=== PATIENT | male | born 1965 | race Caucasian/White ===

== ENCOUNTER 2019-12-21 15:22 | Emergency (ER) | payer SELFPAY ==
--- NOTE | 2019-12-21 16:18 | ER Document Report ---
ED Medical Screen (RME) - General Chief Complaint: Dizziness Stated Complaint: RIGHT SHOULDER PAIN,ARM NUMBNESS Time Seen by Provider: 12/21/19 16:09 Mode of Arrival: Wheelchair Information source: Patient Notes: 54-year-old male presented to ED for pain to the right back numbness to the right arm shortness of breath and dizzy at times for the last 2 days. States his left arm is very numb at this time. He states he has not injured it has not fallen has not lifted up anything to cause this numbness. He states he is also lightheaded and dizzy. Patient has pain to the right upper back and the right chest I have greeted and performed a rapid initial assessment of this patient. A comprehensive ED assessment and evaluation of the patient, analysis of test results and completion of medical decision making process will be conducted by an additional ED providers. TRAVEL OUTSIDE OF THE [place] IN LAST 30 DAYS: No - Related Data Allergies/Adverse Reactions: No Known Drug Allergies Allergy (Verified 12/14/11 10:33) Past Medical History - General Information source: Patient - Social History Cigarette use (# per day): Yes - Pack per day Frequency of alcohol use: Heavy - 3-year Drug Abuse: None Lives with: Family Family history: Reviewed & Not Pertinent - Past Medical History Cardiac Medical History: Reports: Hx Hypertension Pulmonary Medical History: Reports: None EENT Medical History: Reports: None Neurological Medical History: Reports: None Endocrine Medical History: Reports: None Renal/ Medical History: Reports: None Malignancy Medical History: Reports None GI Medical History: Reports: None Musculoskeltal Medical History: Reports Hx Musculoskeletal Trauma - Bilateral clavicle fractures Skin Medical History: Reports None Psychiatric Medical History: Reports: None Traumatic Medical History: Reports: Hx Fractures Infectious Medical History: Reports: None Past Surgical History: Reports: Hx Orthopedic Surgery - Right hand, Hx Tonsillectomy - Immunizations Hx Diphtheria, Pertussis, Tetanus Vaccination: Yes - states 3-4 years ago Physical Exam - Vital signs Vitals: Temp Pulse Resp BP Pulse Ox 97.8 F 97 16 148/89 H 100 12/21/19 15:26 12/21/19 15:26 12/21/19 15:26 12/21/19 15:26 12/21/19 15:26 Course - Vital Signs Vital signs: Temp Pulse Resp BP Pulse Ox 97.8 F 97 16 148/89 H 100 12/21/19 15:26 12/21/19 15:26 12/21/19 15:26 12/21/19 15:26 12/21/19 15:26
--- NOTE | 2019-12-21 16:49 | RADIOLOGY REPORT (SQ) ---
EXAM DESCRIPTION: SCAPULA RIGHT IMAGES COMPLETED DATE/TIME: 12/21/2019 4:33 pm REASON FOR STUDY: Pain right upper chest and scapular down right arm COMPARISON: None. NUMBER OF VIEWS: Two views. TECHNIQUE: AP and transscapular images acquired of the right shoulder. LIMITATIONS: None. FINDINGS: MINERALIZATION: Normal. BONES: No acute fracture . No worrisome bone lesions. No significant osteophytes. SOFT TISSUES: No calcifications. VISUALIZED RIBS, SPINE, AND LUNG: No other significant finding. OTHER: No other significant finding. IMPRESSION: NEGATIVE STUDY OF THE RIGHT SHOULDER. NO RADIOGRAPHIC EVIDENCE OF ACUTE INJURY. NO EXPLA NATION FOR PAIN. TECHNICAL DOCUMENTATION: JOB ID: [id number] 2010 [employer]- All Rights Reserved Reading location - IP/workstation name: [email or web address]
--- NOTE | 2019-12-21 16:51 | RADIOLOGY REPORT (SQ) ---
EXAM DESCRIPTION: CHEST 2 VIEWS IMAGES COMPLETED DATE/TIME: 12/21/2019 4:33 pm REASON FOR STUDY: Pain right upper chest and scapular down right arm COMPARISON: None. EXAM PARAMETERS: NUMBER OF VIEWS: two views TECHNIQUE: Digital Frontal and Lateral radiographic views of the chest acquired. RADIATION DOSE: NA LIMITATIONS: none FINDINGS: LUNGS AND PLEURA: No opacities, masses or pneumothorax. No pleural effusion. MEDIASTINUM AND HILAR STRUCTURES: No masses or contour abnormalities. HEART AND VASCULAR STRUCTURES: Heart normal size. No evidence for failure. BONES: No acute findings. HARDWARE: None in the chest. OTHER: No other significant finding. IMPRESSION: NO ACUTE RADIOGRAPHIC FINDING IN THE CHEST. TECHNICAL DOCUMENTATION: JOB ID: [id number] 2010 [employer]- All Rights Reserved Reading location - IP/workstation name: [email or web address]
[2019-12-21 17:33] LABS: ABSOLUTE EOSINOPHILS # (AUTO) 0.3 10^3/uL (0.0-0.6); ABSOLUTE LYMPHOCYTES (AUTO) 1.1 10^3/uL (0.5-4.7); ABSOLUTE NEUT (AUTO) 6.6 10^3/uL (1.7-8.2); BASOPHILS % (AUTO) 0.3 % (0-2); EOSINOPHILS % (AUTO) 2.8 % (0-6); HEMATOCRIT 48.3 % (37.9-51.0); HEMOGLOBIN 16.8 g/dL (13.5-17.0); LYMPHOCYTES % (AUTO) 12.2 % (13-45); MEAN CORPUSCULAR HEMOGLOBIN 33.6 pg (27.0-33.4); MEAN CORPUSCULAR HGB CONC 34.8 g/dL (32.0-36.0); MEAN CORPUSCULAR VOLUME 96 fl (80-97); MONOCYTES % (AUTO) 11.4 % (3-13); PLATELET COUNT 237 10^3/uL (150-450); RED BLOOD COUNT 5.01 10^6/uL (4.35-5.55); RED CELL DISTRIBUTION WIDTH 13.3 % (11.5-14.0); SEGMENTED NEUTROPHILS % (AUTO) 73.3 % (42-78); TOTAL CELLS COUNTED % (AUTO) 100 %
[2019-12-21 17:36] LABS: APPEARANCE,URINE CLEAR; BILIRUBIN,URINE NEGATIVE (NEGATIVE); COLOR,URINE YELLOW; GLUCOSE, URINE NEGATIVE (NEGATIVE); KETONES,URINE NEGATIVE (NEGATIVE); LEUKOCYTE ESTERASE,URINE NEGATIVE (NEGATIVE); NITRITE,URINE NEGATIVE (NEGATIVE); PROTEIN,URINE NEGATIVE (NEGATIVE); URINE SPECIFIC GRAVITY 1.028; UROBILINOGEN,URINE NEGATIVE mg/dL (<2.0)
[2019-12-21 18:56] LABS: ALBUMIN 4.2 g/dL (3.5-5.0); ALKALINE PHOSPHATASE 81 U/L (38-126); ANION GAP 8 (5-19); ASPARTATE AMINO TRANSFERASE 69 U/L (17-59); BILIRUBIN,DIRECT 0.3 mg/dL (0.0-0.4); BILIRUBIN,TOTAL 0.6 mg/dL (0.2-1.3); BLOOD UREA NITROGEN 21 mg/dL (7-20); CALCIUM 9.9 mg/dL (8.4-10.2); CARBON DIOXIDE 31 mmol/L (22-30); CHLORIDE 98 mmol/L (98-107); CREATINE KINASE 42 U/L (55-170); GLUCOSE 93 mg/dL (75-110); POTASSIUM 4.5 mmol/L (3.6-5.0); TOTAL PROTEIN 7.3 g/dL (6.3-8.2)
[2019-12-21] MEDS ORDERED: HYDROCODONE/ACETAMINOPHEN 5-325 MG TABLET PO ONE (20:27)
[2019-12-21] MEDS ORDERED: KETOROLAC TROMETHAMINE INJ/PF 30 MG/1 ML SDV IV ONE (20:27)
[2019-12-21] MEDS ORDERED: METHYLPREDNISOLONE INJ 125 MG/2 ML SDV IV ONE (20:27)
--- NOTE | 2019-12-21 21:17 | RADIOLOGY REPORT (SQ) ---
EXAM DESCRIPTION: CT CERVICAL SPINE WITHOUT IV CONTRAST COMPLETED DATE/TME: 12/21/2019 20:27 CLINICAL HISTORY: 54 years, Male, neck pain, arm radiculopathy COMPARISON: Plain films of the cervical spine 12/14/2011 TECHNIQUE: Axial images without IV contrast. Sagittal coronal reconstruction. Images stored on PACS. All CT scanners at this facility use dose modulation, iterative reconstruction, and/or weight based dosing when appropriate to reduce radiation dose to as low as reasonably achievable (ALARA). FINDINGS: Reversal of the normal lordosis with mild kyphosis. Minimal subluxations at C2-3 C3-4 and C4-5 probably degenerative. No suspicious prevertebral soft tissue swelling. No significant central stenosis at all levels. Advanced facet disease at C4-5 on the right associated foraminal stenosis at the right C4-5 level. Other neural foramina are unremarkable. IMPRESSION: 1. Reversal of the normal lordosis with mild kyphosis and minimal degenerative subluxations. 2. Advanced facet disease at C4-5 on the right with associated right foraminal stenosis. TECHNICAL DOCUMENTATION: Quality ID # [id number]: Final reports with documentation of one or more dose reduction techniques (e.g., Automated exposure control, adjustment of the mA and/or kV according to patient size, use of iterative reconstruction technique) copyright 2011 [employer]- All Rights Reserved
[2019-12-21] MEDS ORDERED: KETOROLAC TROMETHAMINE 60 MG/2 ML SDV ONE (21:24)
[2019-12-21] MEDS ORDERED: METHYLPREDNISOLONE INJ 125 MG/2 ML SDV IM ONE (21:25)
[2019-12-21] MEDS ORDERED: KETOROLAC TROMETHAMINE 60 MG/2 ML SDV IM ONE (21:25)
--- NOTE | 2019-12-21 22:03 | ER Document Report ---
ED General - General Chief Complaint: Shoulder Pain Stated Complaint: RIGHT SHOULDER PAIN,ARM NUMBNESS Time Seen by Provider: 12/21/19 16:09 Primary Care Provider: LOCO MCRAE JR, DO [ACTIVE PROVISIONAL STAFF] - Follow up in 3-5 days (For orthopedic follow up) Mode of Arrival: Wheelchair TRAVEL OUTSIDE OF THE [place] IN LAST 30 DAYS: No - HPI Notes: 54-year-old male to the emergency department with complaints of right shoulder pain and numbness and tingling into his right hand. He also states he has some right-sided neck pain. He states this has been something that is been going on for him for some time. 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 He states however it is never been consistently this bad. He states this lasted for about 2 days. It seems to have started after he was working on some watercolors at home and was kind of bent over his sketch pad. He states that anytime he moves his neck he has a lot of pain into the right shoulder and into the hand. He states that he also notices that gets a little bit worse when he lifts his arm above his head. He denies any falls. He has not been doing a lot of overhead painting recently. He does admit that sometimes when he stands up he feels a little bit dizzy like the room is spinning as well but he attributes that to pain. Denies any chest pain, shortness of breath. He denies any weakness to the right arm. He is right-hand dominant. - Related Data Allergies/Adverse Reactions: No Known Drug Allergies Allergy (Verified 12/21/19 21:18) Past Medical History - General Information source: Patient - Social History Smoking Status: Current Every Day Smoker Cigarette use (# per day): Yes - Pack per day Frequency of alcohol use: Heavy - 3-year Drug Abuse: None Lives with: Family Family History: Arthritis, CAD, COPD, CVA, DM, Hyperlipidemia, Hypertension, Malignancy - Past Medical History Cardiac Medical History: Reports: Hx Hypertension Pulmonary Medical History: Reports: None EENT Medical History: Reports: None Neurological Medical History: Reports: None Endocrine Medical History: Reports: None Renal/ Medical History: Reports: None Malignancy Medical History: Reports None GI Medical History: Reports: None Musculoskeletal Medical History: Reports Hx Musculoskeletal Trauma - Bilateral clavicle fractures Skin Medical History: Reports None Psychiatric Medical History: Reports: None Traumatic Medical History: Reports: Hx Fractures Infectious Medical History: Reports: None Past Surgical History: Reports: Hx Orthopedic Surgery - Right hand, Hx T onsillectomy - Immunizations Hx Diphtheria, Pertussis, Tetanus Vaccination: Yes - states 3-4 years ago Review of Systems - Review of Systems Constitutional: denies: Chills, Fever EENT: No symptoms reported Cardiovascular: Dizziness. denies: Chest pain, Palpitations, Syncope, Lightheaded Respiratory: denies: Cough, Short of breath Gastrointestinal: denies: Abdominal pain, Diarrhea, Nausea, Vomiting Genitourinary: No symptoms reported Musculoskeletal: Muscle pain - see hpi, Neck pain - see HPI Skin: No symptoms reported Neurological/Psychological: Numbness - see hpi -: Yes All other systems reviewed and negative Physical Exam - Vital signs Vitals: Temp Pulse Resp BP Pulse Ox 97.8 F 97 16 148/89 H 100 12/21/19 15:26 12/21/19 15:26 12/21/19 15:26 12/21/19 15:26 12/21/19 15:26 Interpretation: Normal - General General appearance: Appears well, Alert In distress: Moderate Notes: moderate pain discomfort, holding his right arm - HEENT Head: Normocephalic, Atraumatic Eyes: Normal Pupils: PERRL Neck: Normal Notes: there is mild TTP over the midline cervical spine and over the right side of the neck over the scalene muscles. no edema or erythema. No supraclavicular edema or lymphadenopathy - Respiratory Respiratory status: No respiratory distress Chest status: Nontender Breath sounds: Normal. No: Rales, Rhonchi, Wheezing Chest palpation: Normal - Cardiovascular Rhythm: Regular Heart sounds: Normal auscultation Murmur: No - Abdominal Inspection: Normal Distension: No distension Bowel sounds: Normal Tenderness: Nontender Organomegaly: No organomegaly - Extremities Shoulder: Tender - there is TTP over the right shoulder with edema or erythema. there is no deformity. Abduction of the shoulder and forward flexion increase pain and create tingling in the right hand. Hand accounting officer is 5/5 bilaterally. Strength of the right upper extremity is intact in all ROM against resistance with 5/5. Radial pulses intact and equal. - Neurological Neuro grossly intact: Yes Cognition: Normal Orientation: AAOx4 Lyndon Coma Scale Eye Opening: Spontaneous Lyndon Coma Scale Verbal: Oriented Lyndon Coma Scale Motor: Obeys Commands Lyndon Coma Scale Total: 15 Speech: Normal Cranial nerves: Normal Cerebellar coordination: Normal Motor strength normal: LUE, RUE, LLE, RLE Additional motor exam normals: Equal accounting officer Sensory: Normal - Psychological Associated symptoms: Normal affect, Normal mood - Skin Skin Temperature: Warm Skin Moisture: Dry Skin Color: Normal Course - Re-evaluation Re-evalutation: Impression: Right shoulder/neck pain, hand numbness/tingling. Given his profession, suspect that this is a version of neurogenic thoracic outlet syndrome. Ct of the neck reassuring but with DDD. Will send home with medrol dose morgan, pain meds. Have encouraged him to follow up with orthopedist without fail. Return if worsening symptoms. No painting until cleared by orthopedist. - Vital Signs Vital signs: Temp Pulse Resp BP Pulse Ox 98.2 F 65 13 131/82 H 99 12/21/19 21:34 12/21/19 22:29 12/21/19 22:29 12/21/19 22:29 12/21/19 22:29 - Laboratory Result Diagrams: 12/21/19 16:27 12/21/19 16:27 Laboratory results interpreted by me: 12/21/19 12/21/19 16:27 16:27 MCH 33.6 H Lymph % (Auto) 12.2 L Sodium 136.5 L Carbon Dioxide 31 H BUN 21 H AST 69 H ALT 219 H Creatine Kinase 42 L - Diagnostic Test Radiology reviewed: Image reviewed, Reports reviewed Discharge - Discharge Clinical Impression: Cervicalgia, Degenerative cervical disc, Numbness and tingling in right hand Right shoulder pain Qualifiers: Chronicity: acute Qualified Code(s): M25.511 - Pain in right shoulder Condition: Stable Disposition: HOME, SELF-CARE Instructions: Radiculopathy ([facility]), Thoracic Outlet Syndrome ([facility]) Additional Instructions: Follow-up with orthopedist without fail. Wear the sling to aid in your relief of pain. Take medicines as prescribed. Return if any worsening symptoms such as inability to move the right arm or weakness. Rest at home. Limit your painting. Prescriptions: Cyclobenzaprine HCl [Flexeril 10 mg Tablet] 10 mg PO TID #21 tablet Methylprednisolone [Medrol Dosepack (4 mg/Tab) 21 Tab/Dosepak] 4 mg PO ASDIR PRN #21 tab.ds.pk PRN Reason: Diclofenac Sodium [Voltaren 25 Mg Tablet] 25 mg PO BID #12 tablet.dr Referrals: LOCO MCRAE JR, DO [ACTIVE PROVISIONAL STAFF] - Follow up in 3-5 days (For orthopedic follow up)
[2019-12-21 22:30] VITALS: BP 131/82
--- NOTE | 2019-12-22 06:53 | EKG REPORT ---
SEVERITY:- ABNORMAL ECG - SINUS RHYTHM ST ELEVATION SUGGESTS PERICARDITIS : Confirmed by: Jorge Jameson MD 22-Dec-2019 06:52:10
== END 2019-12-21 22:29 | disposition home or self-care (01) ==
LOC: ER 15:22
DX: M50.30 Other cervical disc degeneration, unspecified cervical region (principal); M48.02 Spinal stenosis, cervical region; M40.202 Unspecified kyphosis, cervical region; M25.511 Pain in right shoulder; R20.0 Anesthesia of skin; R20.2 Paresthesia of skin; R42 Dizziness and giddiness; F17.210 Nicotine dependence, cigarettes, uncomplicated; I10 Essential (primary) hypertension
CPT/HCPCS: 93005; 99285; 96372; 96374; 36415; 82550; 85025; 80053; 81001; 84484; 71046; 73010; 72125; 93010; J1885; J2930